=== PATIENT | female | born 1965 | race African-American/Black ===

== ENCOUNTER 2017-01-23 09:15 | Observation (INO) | payer MEDICAID ==
[~2017-01-23] VITALS: Ht 154.9 cm; Wt 59.9 kg
[~2017-01-23 09:15] MED LIST: HYDR-522 PO; METH500T PO; NAPR-681 PO; TOPA25 PO
[2017-01-23] MEDS ORDERED: ONDANSETRON HCL 4MG/2ML VIAL IV STA (09:29)
[2017-01-23] MEDS ORDERED: MORPHINE SULFATE 4 MG/ML CPJ (NOT FOR IM USE) IV STA (09:29)
[2017-01-23] MEDS ORDERED: ASPIRIN 325MG EC TABLET PO ONE (09:30)
[2017-01-23 09:51] LABS: BASOPHILS % 1.1 % (0.0-2.0); EOSINOPHILS % 0.6 % (0.0-5.0); HEMATOCRIT. 38.7 % (36.0-48.0); HEMOGLOBIN. 13.1 g/dL (12.0-16.0); LYMPHOCYTES % 45.8 % (20.0-50.0); MEAN CORPUSCULAR HEMOGLOBIN 29.9 pg (28.0-32.0); MEAN CORPUSCULAR VOLUME 88.8 fL (81.0-99.0); MEAN PLATELET VOLUME 8.9 fl (7.4-10.4); MONOCYTES % 7.4 % (2.0-8.0); NEUTROPHILS % 45.1 % (40.0-76.0); PLATELET 191 x1000/uL (130-400); RED BLOOD CELL COUNT 4.36 mill/uL (4.2-5.4); RED CELL DISTRIBUTION WIDTH 14.3 % (11.6-14.6)
[2017-01-23 09:59] LABS: INR 1.1; PROTHROMBIN TIME 11.2 sec (9.4-11.6)
[2017-01-23 10:08] LABS: CARBON DIOXIDE 25 mEq/L (21-32); CHLORIDE 113 mEq/L (98-107); TROPONIN I < 0.02 ng/mL (0.00-0.04)
[2017-01-23] MEDS ORDERED: ACETAMINOPHEN 325MG TABLET PO PRN (15:00)
[2017-01-23] MEDS ORDERED: ONDANSETRON HCL 4MG/2ML VIAL IV PRN (15:00)
[2017-01-23 17:05] VITALS: BP 97/63
[2017-01-23] MEDS ORDERED: QUET100T PO (17:19)
[2017-01-23] MEDS ORDERED: MORPHINE SULFATE 2 MG/ML CPJ (NOT FOR IM USE) IV PRN (17:55)
[2017-01-23] MEDS ORDERED: ENOXAPARIN 40MG/0.4ML SYR SUBCUT SCH (18:00)
[2017-01-23 20:00] VITALS: BP 101/67
[2017-01-23] MEDS ORDERED: QUETIAPINE FUMARATE 100MG TABLET PO SCH (21:00)
[2017-01-23] MEDS ORDERED: PNEUMOCOCCAL 23-VAL P-SAC VAC 0.5 ML IM ONE (21:15)
[2017-01-23 23:28] LABS: CREATINE KINASE MB FRACTION 1.5 ng/mL (0.5-3.6); TROPONIN I < 0.02 ng/mL (0.00-0.04)
[2017-01-24] VITALS: BP 92/53
[2017-01-24 04:00] VITALS: BP 94/62
[2017-01-24 06:25] LABS: BASOPHILS % 0.7 % (0.0-2.0); EOSINOPHILS % 1.8 % (0.0-5.0); HEMATOCRIT. 37.4 % (36.0-48.0); HEMOGLOBIN. 12.7 g/dL (12.0-16.0); LYMPHOCYTES % 57.2 % (20.0-50.0); MEAN CORPUSCULAR HEMOGLOBIN 30.2 pg (28.0-32.0); MEAN CORPUSCULAR VOLUME 88.9 fL (81.0-99.0); MEAN PLATELET VOLUME 9.5 fl (7.4-10.4); MONOCYTES % 9.5 % (2.0-8.0); NEUTROPHILS % 30.8 % (40.0-76.0); PLATELET 177 x1000/uL (130-400); RED CELL DISTRIBUTION WIDTH 13.8 % (11.6-14.6)
[2017-01-24 07:08] LABS: CHLORIDE 109 mEq/L (98-107)
[2017-01-24 07:20] LABS: CARBON DIOXIDE 25 mEq/L (21-32); CREATINE KINASE MB FRACTION 1.2 ng/mL (0.5-3.6); HDL CHOLESTEROL 59 mg/dL (40-59); LDL CHOLESTEROL 92 mg/dL (5-100); TROPONIN I < 0.02 ng/mL (0.00-0.04)
[2017-01-24 08:00] VITALS: BP 94/61
[2017-01-24 12:00] VITALS: BP 100/66
[2017-01-24 13:06] VITALS: BP 100/66
== END 2017-01-24 14:15 | disposition home or self-care (01) ==
LOC: ER 09:40 → EDBEDREQ 10:27 → INTOOBSV 10:27 → 8WST 10:27 → ENRESERV 14:27
PROVIDERS: ADMIT Internal Medicine Geriatric Medicine; ATTEND Internal Medicine Geriatric Medicine
DX: R07.89 Other chest pain (principal); R00.1 Bradycardia, unspecified; F32.9 Major depressive disorder, single episode, unspecified; I95.9 Hypotension, unspecified; G89.29 Other chronic pain; I25.10 Atherosclerotic heart disease of native coronary artery without angina pectoris; I25.2 Old myocardial infarction; I51.7 Cardiomegaly; Z82.3 Family history of stroke; Z82.49 Family history of ischemic heart disease and other diseases of the circulatory system
CPT/HCPCS: 36415; 71010; 80048; 80053; 80061; 82553; 83880; 84484; 85025; 85610; 93005; 93306; 96372; 96374; 96375; 99285; G0378; J1650; J2270; J2405